=== PATIENT | female | born 1955 | race Asian ===

== ENCOUNTER 2017-08-11 08:25 | Observation (INO) ==
--- NOTE | 2017-08-11 09:06 | Emergency Department Note ---
Disposition Clinical Impression: Chest pain Qualifiers: Chest pain type: other chest pain Qualified Code(s): R07.89 - Other chest pain ; R07.8 - Other chest pain Disposition: Admitted As Inpatient Referrals: Shukri Mtz Jr, MD [Primary Care Provider] - Forms: ED Satisfaction Letter Chest Pain HPI - General Chief Complaint: ED Chest Pain Stated Complaint: Left side of chest pain Time Seen by Provider: 08/11/17 08:40 Source: patient Limitations: no limitations Vital Signs Reviewed: Yes Nursing Notes Reviewed: Yes - History of Present Illness HPI Narrative: Patient presents with complaint of left-sided chest pain started approximate hour prior to presentation. Patient states she was this at work when the pain started. She states that she feels a goes to the middle of her chest and then to her back. Patient denies shortness of breath, denies cough. Patient states she has had similar in the past. Patient also notes a history of what she appears to describe his palpitations which she is worn a Holter monitor for. She states no clear etiology was found at that time. She denies dizziness denies numbness and tingling. Patient denies any bowel bladder symptoms. She states that she feels this appears be more of a muscle strain. Severity scale (1-10): 2 - Related Data Home Medications Medication Instructions Recorded Confirmed Albuterol Sulfate [Proventil Hfa] 2 puff IH Q4H PRN 05/30/16 06/30/16 Aspirin Enteric Coated [Aspirin EC] 325 mg PO DAILY 05/30/16 06/30/16 Budesonide/Formoterol 160/4.5 2 puff IH BIDR 05/30/16 06/30/16 [Symbicort 160/4.5] Loratadine [Claritin] 10 mg PO DAILY 05/30/16 06/30/16 Montelukast [Singulair] 10 mg PO DAILY 05/30/16 06/30/16 Pantoprazole Sodium [Protonix] 40 mg PO DAILY 05/30/16 06/30/16 Budesonide [Rhinocort Allergy] 2 spray NS BID 06/27/16 06/30/16 Allergies Allergy/AdvReac Type Severity Reaction Status Date / Time No Known Allergies Allergy Verified 08/11/17 08:29 All systems ED: reviewed and negative except as stated. Cardiovascular: Reports: chest pain Chest Pain PMH - Past Medical History Medical history: Reports: asthma, diabetes, GERD Surgical history: Reports: hysterectomy, orthopedic, other Psychiatric history: Reports: no psych history - Social History Smoking Status: Never smoker Alcohol use: Reports: none Drug use: Reports: none Physical Exam - General Limitations: no limitations General appearance: alert, in no apparent distress - Head Head exam: atraumatic, normocephalic, normal inspection - Eye Eye exam: Present: normal appearance, PERRL, EOMI - ENT ENT exam: normal exam, normal oropharynx, mucous membranes moist - Neck Neck exam: Present: normal inspection, full ROM, trachea midline - Chest Chest inspection: Present: normal inspection, symmetric chest wall rise - Respiratory Respiratory exam: Present: normal lung sounds bilaterally - Cardiovascular Cardiovascular exam: Present: regular rate, normal rhythm, normal heart sounds - Abdominal Exam Abdominal exam: Present: soft, Non-Tender. Absent: tenderness, distention, guarding, rebound, rigidity - Extremities Exam Extremities exam: Present: normal inspection, full ROM. Absent: tenderness, pedal edema - Back Exam Back exam: Present: normal inspection, full ROM. Absent: tenderness - Neurological Exam Neurological exam: Present: alert, oriented X3 - Psychiatric Psychiatric exam: Present: normal affect, normal mood - Skin Skin exam: Present: warm, dry, intact, normal color Course Vital Signs Temperature 98.0 F 08/11/17 08:27 Pulse Rate 74 08/11/17 08:27 Respiratory Rate 16 08/11/17 08:27 Blood Pressure 169/88 08/11/17 08:27 O2 Sat by Pulse Oximetry 88 08/11/17 08:27 Temperature 98.0 F 08/11/17 08:27 Pulse Rate 65 08/11/17 09:54 Respiratory Rate 18 08/11/17 09:54 Blood Pressure 139/73 08/11/17 09:54 O2 Sat by Pulse Oximetry 99 08/11/17 09:54 Oxygen Delivery Oxygen Delivery Room Air Chest Pain - Differential Diagnosis Likely: fracture of rib, pneumothorax, st elevation myocardial infraction, costalchondritis, chest pain - Lab Data Lab results reviewed: Yes I reviewed the patient's lab results. Result diagrams: 08/11/17 09:04 08/11/17 09:02 Lab Results 08/11/17 08/11/17 08/11/17 Range/Units 09:02 09:02 09:02 WBC (4.3-11.1) K/mcL RBC (3.82-4.97) M/mcL Hgb (11.5-15.4) g/dL Hct (35.3-44.9) % MCV (83.0-100.0) fL MCH (28.0-33.3) pg MCHC (31.6-35.5) g/dL RDW (11.5-14.5) % Plt Count (140-400) K/mcL MPV (9.4-12.4) fL Immature Gran % (0-4) % Seg Neutrophils % % Lymphocytes % % Monocytes % % Eosinophils % % Basophils % % Neutrophils # (1.6-8.9) K/mcL Lymphocytes # (0.6-4.6) K/mcL Monocytes # (0.0-1.3) K/mcL Eosinophils # (0.0-0.6) K/mcL Basophils # (0.0-0.2) K/mcL PT 9.9 (9.4-12.1) Seconds INR 0.9 APTT 31.3 (26.0-36.0) Seconds D-Dimer 288 (0-500) ng/mLFEU Sodium 143 (136-145) mEq/L Potassium 3.4 L (3.5-4.5) mEq/L Chloride 109 (98-109) mEq/L Carbon Dioxide 27 (19-29) mEq/L BUN 12 (7-20) mg/dL Creatinine 0.71 (0.57-1.11) mg/dL Est GFR ( Amer) > 60 (> 60) Est GFR (Non-Af Amer) > 60 (> 60) BUN/Creatinine Ratio 17 (6-26) Glucose 151 H (70-99) mg/dL Calculated Osmolality 299 (280-300) Calcium 9.1 (8.6-10.8) mg/dL Total Bilirubin 0.5 (0.2-1.2) mg/dL AST 18 (5-34) Units/L ALT 19 (0-55) Units/L Alkaline Phosphatase 46 (38-126) Units/L Troponin I 0.00 (0-0.03) ng/mL Serum Total Protein 7.1 (6.0-8.3) g/dL Albumin 3.8 (3.5-5.0) g/dL Globulin 3.3 (2.4-3.5) g/dL Albumin/Globulin Ratio 1.2 (1.1-2.2) 08/11/17 Range/Units 09:04 WBC 5.8 (4.3-11.1) K/mcL RBC 4.33 (3.82-4.97) M/mcL Hgb 13.1 (11.5-15.4) g/dL Hct 39.4 (35.3-44.9) % MCV 91.0 (83.0-100.0) fL MCH 30.3 (28.0-33.3) pg MCHC 33.2 (31.6-35.5) g/dL RDW 13.1 (11.5-14.5) % Plt Count 229 (140-400) K/mcL MPV 10.2 (9.4-12.4) fL Immature Gran % 0.3 (0-4) % Seg Neutrophils % 53.8 % Lymphocytes % 32.4 % Monocytes % 5.2 % Eosinophils % 7.3 % Basophils % 1.0 % Neutrophils # 3.1 (1.6-8.9) K/mcL Lymphocytes # 1.9 (0.6-4.6) K/mcL Monocytes # 0.3 (0.0-1.3) K/mcL Eosinophils # 0.4 (0.0-0.6) K/mcL Basophils # 0.1 (0.0-0.2) K/mcL PT (9.4-12.1) Seconds INR APTT (26.0-36.0) Seconds D-Dimer (0-500) ng/mLFEU Sodium (136-145) mEq/L Potassium (3.5-4.5) mEq/L Chloride (98-109) mEq/L Carbon Dioxide (19-29) mEq/L BUN (7-20) mg/dL Creatinine (0.57-1.11) mg/dL Est GFR ( Amer) (> 60) Est GFR (Non-Af Amer) (> 60) BUN/Creatinine Ratio (6-26) Glucose (70-99) mg/dL Calculated Osmolality (280-300) Calcium (8.6-10.8) mg/dL Total Bilirubin (0.2-1.2) mg/dL AST (5-34) Units/L ALT (0-55) Units/L Alkaline Phosphatase (38-126) Units/L Troponin I (0-0.03) ng/mL Serum Total Protein (6.0-8.3) g/dL Albumin (3.5-5.0) g/dL Globulin (2.4-3.5) g/dL Albumin/Globulin Ratio (1.1-2.2) - Radiology Data Radiology results reviewed: Yes I reviewed the patient's radiology results. Chest X-Ray 08/11/17 08:56 IMPRESSION: No acute abnormality. D/ / Vinod Griggs MD / Vinod Griggs MD Interpreting Provider: Vinod Griggs MD - EKG Data EKG attestation: Yes I reviewed and interpreted this EKG. EKG shows normal: sinus rhythm Rate: normal
[2017-08-11 09:11] LABS: Basophils # 0.1 K/mcL (0.0-0.2); Eosinophils # 0.4 K/mcL (0.0-0.6); Eosinophils % 7.3 %; Hematocrit 39.4 % (35.3-44.9); Hemoglobin 13.1 g/dL (11.5-15.4); Immature Granulocytes % 0.3 % (0-4); Lymphocytes # 1.9 K/mcL (0.6-4.6); Lymphocytes % 32.4 %; Mean Corpuscular HGB Conc 33.2 g/dL (31.6-35.5); Mean Corpuscular Hemoglobin 30.3 pg (28.0-33.3); Mean Platelet Volume 10.2 fL (9.4-12.4); Monocytes # 0.3 K/mcL (0.0-1.3); Monocytes % 5.2 %; Neutrophils # 3.1 K/mcL (1.6-8.9); Platelet Count 229 K/mcL (140-400); Red Blood Count 4.33 M/mcL (3.82-4.97); Red Cell Distribution Width 13.1 % (11.5-14.5); Segmented Neutrophils % 53.8 %
[2017-08-11 09:18] LABS: INR 0.9; Prothrombin Time 9.9 Seconds (9.4-12.1)
[2017-08-11 09:20] LABS: Activated Partial Thrombo Time 31.3 Seconds (26.0-36.0)
[2017-08-11 09:25] LABS: Alanine Aminotransferase 19 Units/L (0-55); Albumin 3.8 g/dL (3.5-5.0); Albumin/Globulin Ratio 1.2 (1.1-2.2); Alkaline Phosphatase 46 Units/L (38-126); Aspartate Amino Transferase 18 Units/L (5-34); BUN/Creatinine Ratio 17 (6-26); Bilirubin,Total 0.5 mg/dL (0.2-1.2); Blood Urea Nitrogen 12 mg/dL (7-20); Calcium 9.1 mg/dL (8.6-10.8); Carbon Dioxide 27 mEq/L (19-29); Chloride 109 mEq/L (98-109); Globulin 3.3 g/dL (2.4-3.5); Glucose 151 mg/dL (70-99); Osmolality,Calculated 299 (280-300); Potassium 3.4 mEq/L (3.5-4.5); Sodium 143 mEq/L (136-145); Total Protein 7.1 g/dL (6.0-8.3); eGFR For African Americans > 60 (> 60); eGFR For Non-African Americans > 60 (> 60)
[2017-08-11] MEDS ORDERED: *HR* Morphine 2 MG/ML SYRINGE IVP PRN (11:43)
[2017-08-11] MEDS ORDERED: Naloxone 0.4 MG/ML INJ IVP PRN (11:43)
[2017-08-11] MEDS ORDERED: Acetaminophen 325 MG TABLET PO PRN (11:43)
[2017-08-11] MEDS ORDERED: Ondansetron 4 MG/2 ML VIAL IVP PRN (11:43)
[2017-08-11] MEDS ORDERED: *HR* HYDROcodone/Acet 5/325 mg TABLET PO PRN (11:43)
[2017-08-11] MEDS ORDERED: D5% in Water 1,000 ML IVC PRN (11:48)
[2017-08-11] MEDS ORDERED: Dextrose Gel 15 GM PO PRN ×2 (11:48)
[2017-08-11] MEDS ORDERED: *HR* Dextrose 50 % in Water (Syg) 50 ML SYRINGE IVP PRN (11:48)
[2017-08-11] MEDS ORDERED: Ipratropium/Albuterol Neb 3 ML IH PRN (11:49)
--- NOTE | 2017-08-11 13:30 | Internal Med History&Physical ---
<PrimoemkaiPino durand - Last Filed: 08/11/17 14:15> Date of Encounter: 08/11/17 Time of Encounter: 08:30 Assessment and Plan (1) Chest pain Current visit: Yes Status: Acute Acute chest pain that patient describes as left-sided with radiation to left back that began this morning. Patient also reports palpitations that are transient. Patient reports she has had intermittent similar symptoms 4 years and reports she was placed on a Holter monitor greater than 10 years ago and most recently this month with no adverse events noted. Initial troponin 0.00. Will trend x2. Continuous cardiac telemetry. Echocardiogram ordered. NPO at midnight for a.m. exercise stress test order. Will consider cardiology consult based on troponin and test results. Patient to be monitored closely. Qualifiers: Chest pain type: other chest pain Qualified Code(s): R07.89 - Other chest pain; R07.8 - Other chest pain (2) Asthma Current visit: Yes Status: Chronic Hx of chronic mild persistent asthma. Will continue patient's Singulair and inhalers. DuoNebs Q6 PRN. Monitor patient. Qualifiers: Asthma severity: mild persistent Qualified Code(s): J45.30 - Mild persistent asthma, uncomplicated (3) GERD (gastroesophageal reflux disease) Current visit: Yes Status: Chronic Hx of chronic GERD. IVP Zofran Q6 PRN for N/V and IVP Protonix 40 mg BID. Qualifiers: Esophagitis presence: esophagitis presence not specified Qualified Code(s) : K21.9 - Gastro-esophageal reflux disease without esophagitis (4) DVT prophylaxis Current visit: Yes Status: Acute Heparin 5,000 units SQ Q8 for DVT prophylaxis. Internal Medicine - H&P: HPI Chief complaint: Chest pain Admitted From: Emergency Dept Plans for Post Hospital Care: Home History of present illness: Ms. Poole is a 62 year old female with medical history of asthma, diabetes controlled with oral antihyperglycemic medications, and GERD presents from the ED with chief complaint of transient left-sided chest pain which radiates to her back which began this morning. Patient reports she has had intermittent similar symptoms 4 years and reports she was placed on a Holter monitor greater than 10 years ago and most recently this month with no adverse events noted. She also reports transient palpitations. Patient denies recent illness, fever, chills, nausea, vomiting, shortness of breath, vision changes, headache, weakness, fatigue, numbness, tingling, cough, abdominal pain, diarrhea, constipation, lightheadedness, dizziness, presyncope, or syncope. Upon admission, patient's vital signs include temperature of 98.0F, heart rate of 65 bpm, respiratory rate of 18, BP of 139/73, and SPO2 99% on room air. Pertinent abnormal lab values including potassium of 3.4, and glucose of 151. Initial troponin 0.00. Upon assessment, patient is alert and oriented 3 and stated she is currently chest pain-free at this time and not experiencing any distress. Heart rate is RRR and lungs are clear bilaterally on auscultation. Patient is hemodynamically stable and reports no acute distress. Ms. Poole is a moderate risk for further morbidity based on current symptoms, previous episodes of palpitations, risk factors and history and will be placed as observation status. Time spent with patient greater than 40 minutes. Past Med Surg Social Fam HX - Past Medical History Source: patient, old records reviewed Medical history: asthma, diabetes, GERD Psychiatric history: no psych history - Past Surgical History Surgical History: hysterectomy, orthopedic, other - Social History Smoking Status: Never smoker Smokeless Tobacco Status: No Alcohol use: none Drug use: none Current living situation: Home, With Family Activity Level: Independent ambulation, Very active Recent Out of Country Travel Within the Last 8 Weeks: No Exposure or Possible Exposure to Illness During Travel: No - Family History Father Race: / Family Member Ethnicity: Non- Living Status: Age at : 60 Cause of : Stroke Hx Family Cardiac Disorders: Yes (Stroke) Mother Race: / Family Member Ethnicity: Non- Living Status: Still Living Hx Family Cancer: Yes (Colon - resolved) Hx Family Musculoskeletal Disorders: Yes (Osteoporosis) Brother Race: / Family Member Ethnicity: Non- Living Status: Still Living Hx Family Endocrine Disorder: Yes (DM) Sister Race: / Family Member Ethnicity: Non- Living Status: Still Living Hx Family Endocrine Disorder: Yes (DM) Internal Medicine - H&P: Meds Albuterol Sulfate [Proventil Hfa] 2 puff IH Q4H PRN 05/30/16 [History] Aspirin Enteric Coated [Aspirin EC] 325 mg PO DAILY 05/30/16 [History] Budesonide/Formoterol 160/4.5 [Symbicort 160/4.5] 2 puff IH BIDR 05/30/16 [ History] Montelukast [Singulair] 10 mg PO DAILY 05/30/16 [History] Pantoprazole Sodium [Protonix] 40 mg PO DAILY 05/30/16 [History] metFORMIN [Glucophage] 500 mg PO DAILY 08/11/17 [History] 3 Allergy/AdvReac Type Severity Reaction Status Date / Time No Known Allergies Allergy Verified 08/11/17 08:29 All Systems PM: A 10-system review of systems was performed and is negative for pertinent findings except as documented above in the HPI. - Constitutional Constitutional: no chills, no fever(s), no night sweats - EENT Eyes: no change in vision, no discharge, no pain, no photophobia Ears: no ear discharge, no ear pain, no tinnitus Nose, mouth and throat: no dysphagia, no nasal discharge, no neck pain, no sore throat - Breasts Breasts: as per HPI - Cardiovascular Cardiovascular ROS IM: as per HPI, chest pain, palpitations - Respiratory Respiratory: no cough, no dyspnea, no wheezing, no excessive phlegm production - Gastrointestinal Gastrointestinal: no abdominal pain, no diarrhea, no hematemesis, no hematochezia, no melena, no nausea, no vomiting - Genitourinary Genitourinary: no change in urinary stream, no dysuria, no flank pain, no hematuria Menstruation: as per HPI, post hysterectomy - Musculoskeletal Musculoskeletal ROS IM: no numbness, no tingling - Integumentary Integumentary IM: no rash, no unusual bruising - Neurological Neurological ROS: no confusion, no convulsions, no focal weakness, no numbness, no tingling, no tremor(s) - Psychiatric Psychiatric: as per HPI - Endocrine Endocrine IM: as per HPI - Hematologic/Lymphatic Hematologic/Lymphatic: no easy bruising - Allergic/Immunologic Allergic/Immunologic: as per HPI - Constitutional Vitals: Temp Pulse Resp BP Pulse Ox 98.2 F 63 18 160/85 97 08/11/17 11:58 08/11/17 11:58 08/11/17 11:58 08/11/17 11:58 08/11/17 11:58 General appearance: Present: cooperative, A&O X 3, pleasant, no acute distress, answers questions appropriately - Head Head exam: Present: atraumatic, normocephalic - Eye Eye exam: Present: PERRL, conjuntiva pink, sclera anicteric Pupils: Present: PERRL - ENT ENT exam: Present: normal exam, normal external ear exam - Neck Neck exam general surgery: Present: normal inspection, supple, trachea midline. Absent: lymphadenopathy - Respiratory Respiratory exam: Present: CTAB. Absent: accessory muscle use, rales, rhonchi, wheezes - Cardiovascular Cardiovascular exam: Present: RRR, +S1, +S2. Absent: diastolic murmur, gallop, rubs, systolic murmur - GI/Abdominal GI/Abdominal exam: Present: normal bowel sounds, soft, no peritoneal signs. Absent: distended, tenderness - Rectal Rectal exam: Present: deferred - Additional comments: exam deferred. - Extremities Exam Extremities exam: Present: warm, radial pulses palpable and symmetrical. Absent : calf tenderness, cyanotic, pedal edema - Back Exam Back exam: Present: normal inspection - Neurological Exam Neurological exam: Present: CN II-XII intact, oriented X3, no focal deficits. Absent: pronater drift, facial droop, speech deficit - Psychiatric Psychiatric exam: Present: normal affect, normal mood - Skin Skin exam: Present: dry, intact Internal Med - H&P Results - Labs CBC & Chem 7: 08/11/17 09:04 08/11/17 09:02 - EKG Data EKG shows normal: sinus rhythm - EKG Data Prior EKG available for review: yes When compared to previous EKG: there is no significant change EKG comments: 08/11/17 14:03 EKG dated 06/21/13 shows sinus tachycardia, ST junctional depression is nonspecific, borderline ECG. EKG dated 08/11/17 shows sinus rhythm with minimal ST depression, borderline ECG. 08/11/17 14:04 - Diagnostic Studies Chest x-ray Additional comments: Impressions Chest X-Ray 08/11/17 08:56 IMPRESSION: No acute abnormality. D/ / Vinod Griggs MD / Vinod Griggs MD Interpreting Provider: Vinod Griggs MD <Joselito Osborne H - Last Filed: 08/11/17 15:36> Date of Encounter: 08/11/17 Internal Medicine - H&P: HPI History of present illness: Ms. Poole is a 62 year old female All Systems PM: A 10-system review of systems was performed and is negative for pertinent findings except as documented above in the HPI. - Constitutional Vitals: Temp Pulse Resp BP Pulse Ox 98.2 F 63 18 160/85 97 08/11/17 11:58 08/11/17 11:58 08/11/17 11:58 08/11/17 11:58 08/11/17 11:58 Internal Med - H&P Results - Labs CBC & Chem 7: 08/11/17 09:04 08/11/17 09:02 - Attending Attestation 1. Chest pain Monitor troponins, continue telemetry, stress test in the morning 2. History of esophagitis, start omeprazole 40 mg twice a day 3. Diabetes type 2 not insulin-dependent continue insulin sliding scale and hold metformin 4. Asthma, albuterol as needed Patient will be admitted for observation. Full code. For this encounter, I have reviewed the [employer] SUPERINTENDENT or PA documentation, treatment plan, and medical decision making; and I have had face to face time with this patient.
[2017-08-11] MEDS: Insulin LISPRO 300 UNITS/3 ML VIAL SQ SCH (16:13)
[2017-08-11] MEDS: Budesonide/Formoterol 160/4.5 MDI IH SCH (19:47)
[2017-08-11] MEDS: *HR* Heparin 5,000 UNIT/ML VIAL SQ SCH (20:50)
[2017-08-11] MEDS ORDERED: Insulin LISPRO 300 UNITS/3 ML VIAL SQ SCH (21:00)
[2017-08-11] MEDS ORDERED: Pantoprazole 40 MG VIAL IVP SCH (21:00)
[2017-08-12 03:09] LABS: Basophils # 0.1 K/mcL (0.0-0.2); Basophils % 0.9 %; Eosinophils # 0.6 K/mcL (0.0-0.6); Eosinophils % 9.2 %; Hemoglobin 12.6 g/dL (11.5-15.4); Immature Granulocytes % 0.1 % (0-4); Lymphocytes # 2.8 K/mcL (0.6-4.6); Lymphocytes % 41.2 %; Mean Corpuscular HGB Conc 33.2 g/dL (31.6-35.5); Mean Corpuscular Hemoglobin 30.4 pg (28.0-33.3); Mean Corpuscular Volume 91.6 fL (83.0-100.0); Mean Platelet Volume 10.3 fL (9.4-12.4); Monocytes # 0.4 K/mcL (0.0-1.3); Neutrophils # 2.9 K/mcL (1.6-8.9); Platelet Count 223 K/mcL (140-400); Red Blood Count 4.15 M/mcL (3.82-4.97); Red Cell Distribution Width 13.3 % (11.5-14.5); Segmented Neutrophils % 42.6 %
[2017-08-12 03:22] LABS: Alanine Aminotransferase 15 Units/L (0-55); Albumin 3.3 g/dL (3.5-5.0); Alkaline Phosphatase 44 Units/L (38-126); Aspartate Amino Transferase 17 Units/L (5-34); BUN/Creatinine Ratio 19 (6-26); Bilirubin,Total 0.6 mg/dL (0.2-1.2); Blood Urea Nitrogen 18 mg/dL (7-20); Calcium 9.3 mg/dL (8.6-10.8); Carbon Dioxide 25 mEq/L (19-29); Chloride 108 mEq/L (98-109); Chol/HDL Ratio 3.3 (0-4.9); Cholesterol 203 mg/dL (< 200); Globulin 3.2 g/dL (2.4-3.5); Glucose 130 mg/dL (70-99); HDL Cholesterol 61 mg/dL (40-59); Hemoglobin A1C 6.5 %; LDL Cholesterol,Calculated 118 mg/dL (0-99); Magnesium 2.3 mg/dL (1.6-2.6); Osmolality,Calculated 296 (280-300); Potassium 3.5 mEq/L (3.5-4.5); Sodium 141 mEq/L (136-145); Total Protein 6.5 g/dL (6.0-8.3); Triglycerides 121 mg/dL (< 150); eGFR For African Americans > 60 (> 60); eGFR For Non-African Americans > 60 (> 60)
[2017-08-12] MEDS: *HR* Heparin 5,000 UNIT/ML VIAL SQ SCH (05:17)
[2017-08-12] MEDS ORDERED: Regadenoson 0.4 MG/5 ML SYRINGE IVP ONE (05:33)
[2017-08-12] MEDS: Insulin LISPRO 300 UNITS/3 ML VIAL SQ SCH ×2 (08:13→12:27)
[2017-08-12] MEDS ORDERED: Aspirin Enteric Coated 325 MG Tablet PO SCH (09:00)
[2017-08-12] MEDS: Budesonide/Formoterol 160/4.5 MDI IH SCH (09:25)
[2017-08-12 10:32] VITALS: BP 121/75
--- NOTE | 2017-08-12 11:17 | Nuclear Medicine Stress Report ---
Low Level Regadenoson Name: Nicky Poole Date of Study: 08/12/2017 Date: 1955 Ht: 61.0 in Medical Record#: [id number] Age: 62 Wt: 118.0 lb Gender: Female Order #: [id number] Location: [facility] Room: [facility] Supervising Provider: Jaki Bergeron CNP Reading Physician: Fab Graham MD, [facility] Ordering Physician: Elizabeth Garner CNP Stress Technologist: Amelia Leon SUPERVISOR [place]IL[employer], [facility] Sole Trimmer: Chasity Pagan Indications: Chest Pain Impression: Perfusion imaging was negative for ischemia or infarct. Exercise ECG was non-diagnostic for ischemia. Exercise capacity was fair. Patient had no chest pain with stress. No arrhythmias noted with stress. Gated EF = >70%. There is no evidence of TID. History: Diabetes Stress Test Summary: Stress Test Type: Low level pharmacologic Regadenoson 0.4mg/5ml given IV Baseline Information: Initial Heart Rate: 63 Blood Pressure: 118/62 Stress Information: Stress Time: 4 min 00 sec Test Terminated Due to (primary): As per protocol Maximum Blood Pressure: 126/70 Maximum Heart Rate: 112 Percent Maximum Heart Rate Achieved: 70 Double Product: [id number] METS Reached: 2.1 Symptoms: No chest symptoms Nuclear Summary: SPECT myocardial perfusion imaging using Tc99m Sestamibi given intravenously was performed at rest and following cardiac stress testing. The resting images were obtained following initial dose of 11.0 mCi. Following stress an additional dose of 35.3 mCi was given at peak exercise or 30 seconds post regadenoson infusion. Medication Given: Time Medication Dose Units Route Findings: Stress Note * Resting ECG demonstrated normal sinus rhythm. * No baseline arrhythmias were noted. * Exercise ECG is non diagnostic for ischemia due to did not reach target heart rate. * No arrhythmias were noted during stress. * The exercise capacity was fair. * Patient had no chest pain during stress. Hemodynamic responses * The patient demonstrated a hypotensive blood pressure response. Study Quality * Study quality is average. Gated EF > 70% * Gated EF > 70%. Left Ventricle * The left ventricle is not dilated. NORMALS * Normal wall motion. * Normal segmental perfusion in stress. * Normal Segmental Perfusion in rest. TID * No evidence of transient ischemic dilatation. Updated by Fab Graham MD, FACC on 08/12/2017 11:00:53 AM electronically signed on 08/12/2017 11:12:54 AM with status of Final
--- NOTE | 2017-08-12 12:47 | Discharge Summary ---
Date of Encounter: 08/12/17 Time of Encounter: 12:45 - Discharge Diagnosis (1) Chest pain Priority: Primary Status: Acute Qualifiers: Chest pain type: other chest pain Qualified Code(s): R07.89 - Other chest pain; R07.8 - Other chest pain (2) Asthma Priority: Secondary Status: Chronic Qualifiers: Asthma severity: mild persistent Qualified Code(s): J45.30 - Mild persistent asthma, uncomplicated (3) GERD (gastroesophageal reflux disease) Priority: Secondary Status: Chronic Qualifiers: Esophagitis presence: esophagitis presence not specified Qualified Code(s) : K21.9 - Gastro-esophageal reflux disease without esophagitis (4) Diabetes Priority: Secondary Status: Acute Qualifiers: Diabetes mellitus type: type 2 Diabetes mellitus complication status: without complication Diabetes mellitus long term acute care registered nurse insulin use: without mcfp use Qualified Code(s): E11.9 - Type 2 diabetes mellitus without complications - Discharge Medications Prescriptions: Pantoprazole Sodium [Protonix] 40 mg PO DAILY 30 Days #30 tablet. Home Medications: Albuterol Sulfate [Proventil Hfa] 2 puff IH Q4H PRN 05/30/16 [History] Aspirin Enteric Coated [Aspirin EC] 325 mg PO DAILY 05/30/16 [History] Budesonide/Formoterol 160/4.5 [Symbicort 160/4.5] 2 puff IH BIDR 05/30/16 [ History] Montelukast [Singulair] 10 mg PO DAILY 05/30/16 [History] metFORMIN [Glucophage] 500 mg PO DAILY 08/11/17 [History] Pantoprazole Sodium [Protonix] 40 mg PO DAILY 30 Days #30 tablet. 08/12/17 [Rx ] Allergies/Adverse Reactions: 3 Allergy/AdvReac Type Severity Reaction Status Date / Time No Known Allergies Allergy Verified 08/11/17 08:29 Procedures/tests Complete & Pending: Procedures Performed prior 72 hours Category Date Time Status NM joey perf SPECT multi [NM] Routine Exams 08/11/17 13:57 Taken EV echocardiogram Routine Y 08/11/17 11:46 Completed SP pharm nuclear stress Routine Y 08/12/17 07:00 Completed Date of admission: 08/11/17 10:25 Primary care physician: Shukri Mtz Jr, MD - Patient Status Disposition: Home, Self-Care Condition: Good - Discharge Instructions Follow Up With: Shukri Mtz Jr, MD [Primary Care Provider] - Additional Instructions: Follow-up with primary care physician within the next 2 weeks. Continue diabetes control with metformin - Diet and Activity Activity: increase activity as tolerated Diet: diabetic diet Hospital course: Ms. Poole is a 62 year old female with medical history of asthma, diabetes controlled with oral antihyperglycemic medications, esophagitis, and GERD presented to the ED with a chief complaint of transient left-sided chest pain which radiated to her back which began this morning. Patient reported that she has had intermittent similar symptoms for the past 4 years and reported she was placed on a Holter monitor greater than 10 years ago and most recently this month with no adverse events noted. She also reported transient palpitations. Patient denied recent illness, fever, chills, nausea, vomiting, shortness of breath, vision changes, headache, weakness, fatigue, numbness, tingling, cough, abdominal pain, diarrhea, constipation, lightheadedness, dizziness, presyncope, or syncope. Upon admission, patient's vital signs include temperature of 98.0F , heart rate of 65 bpm, respiratory rate of 18, BP of 139/73, and SPO2 99% on room air. Pertinent abnormal lab values including potassium of 3.4, and glucose of 151. Initial troponin 0.00. EKG was unremarkable The patient underwent a stress test that did not show any ischemic abnormality. She is stable to be discharged home - Time Spent with Patient Total time spent providing and/or coordinating discharge services: Greater than 30 minutes (40 min) - Constitutional Vitals: Temp Pulse Resp BP Pulse Ox 97.6 F 60 15 121/75 98 08/12/17 10:30 08/12/17 10:30 08/12/17 10:30 08/12/17 10:30 08/12/17 10:30 General appearance: Present: cooperative, A&O X 3, pleasant, no acute distress, answers questions appropriately - Head Head exam: Present: atraumatic, normocephalic - Eye Eye exam: Present: PERRL, conjuntiva pink, sclera anicteric Pupils: Present: PERRL - Neck Neck exam general surgery: Present: supple, trachea midline. Absent: lymphadenopathy - Respiratory Respiratory exam: Present: CTAB. Absent: accessory muscle use, rales, rhonchi, wheezes - Cardiovascular Cardiovascular exam: Present: RRR, +S1, +S2. Absent: diastolic murmur, gallop, rubs, systolic murmur - GI/Abdominal GI/Abdominal exam: Present: normal bowel sounds, soft, no peritoneal signs. Absent: distended, tenderness - Extremities Exam Extremities exam: Present: warm, radial pulses palpable and symmetrical. Absent : calf tenderness, cyanotic, pedal edema - Neurological Exam Neurological exam: Present: CN II-XII intact, oriented X3, no focal deficits. Absent: pronater drift, facial droop, speech deficit - Skin Skin exam: Present: dry, intact
--- NOTE | 2017-08-12 18:10 | Electrocardiograph Report ---
[address] [place], [place] [address] Test Date: 2017-08-11 Pat Name: Nicky Poole Department: 103 Room: 3B23 Gender: F Dentist Private Practice: [facility] : 1955 Requested By: Filiberto Solorzano Order Number: [id number] Reading MD: Fab Graham MD Measurements Intervals [place] Rate: 72 P: 62 OK: 177 QRS: 65 QRSD: 97 T: 66 QT: 419 QTc: 444 Interpretive Statements SINUS RHYTHM Electronically Signed On 08-12-2017 18:08:51 EDT by Fab Graham MD
== END 2017-08-12 14:00 | disposition home or self-care (01) ==
LOC: 3BNU 08:25 → EMEROO 08:25 → SUATTDRO 10:25 → 3BNU 11:05
PROVIDERS: ADMIT Nurse Practitioner Family; ATTEND Internal Medicine